=== PATIENT | male | born 1990 | race American Indian/Alaskan Native ===

== ENCOUNTER 2017-02-25 10:04 | Emergency (ER) | payer SELFPAY ==
[2017-02-25 10:24] VITALS: BP 131/92
== END 2017-02-25 10:30 | disposition left against medical advice (07) ==
LOC: ED 10:04
DX: R07.9 Chest pain, unspecified (principal); Z53.21 Procedure and treatment not carried out due to patient leaving prior to being seen by health care provider

== ENCOUNTER 2017-03-03 10:47 | Emergency (ER) | payer SELFPAY ==
[2017-03-03 11:07] VITALS: BP 137/95
[2017-03-03 12:37] LABS: Basophils % (Auto) 0.9 % (0.0-1.8); Eosinophils % (Auto) 0.9 % (0.0-4.3); Hematocrit 47.5 % (35.5-45.6); Mean Corpuscular HGB Conc 34 % (32-34); Mean Corpuscular Hemoglobin 31 pg (28-32); Mean Corpuscular Volume 92 fl (84-94); Platelet Count 209 K/mm3 (140-440); Red Blood Count 5.15 M/mm3 (3.65-5.03); Red Cell Distribution Width 12.8 % (13.2-15.2); White Blood Count 4.4 K/mm3 (4.5-11.0)
[2017-03-03 12:47] LABS: Anion Gap 16 mmol/L; Blood Urea Nitrogen 11 mg/dL (9-20); Calcium 9.4 mg/dL (8.4-10.2); Carbon Dioxide 26 mmol/L (22-30); Chloride 102.4 mmol/L (98-107); Glucose 88 mg/dL (75-100); Potassium 4.5 mmol/L (3.6-5.0); Sodium 140 mmol/L (137-145)
== END 2017-03-03 12:07 | disposition left against medical advice (07) ==
LOC: ED 10:47
DX: R07.9 Chest pain, unspecified (principal); F90.9 Attention-deficit hyperactivity disorder, unspecified type; Z91.030 Bee allergy status; Z53.21 Procedure and treatment not carried out due to patient leaving prior to being seen by health care provider
CPT/HCPCS: 36415; 80048; 84484; 85025; 93005; 93010

== ENCOUNTER 2017-07-22 02:20 | Emergency (ER) | payer OTHER ==
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
[2017-07-22 06:25] VITALS: BP 121/79
== END 2017-07-22 06:25 | disposition home or self-care (01) ==
LOC: ED 02:20
DX: S61.216A Laceration without foreign body of right little finger without damage to nail, initial encounter (principal); S61.214A Laceration without foreign body of right ring finger without damage to nail, initial encounter; F90.9 Attention-deficit hyperactivity disorder, unspecified type; Z91.030 Bee allergy status; W25.XXXA Contact with sharp glass, initial encounter; Y93.89 Activity, other specified; Y92.89 Other specified places as the place of occurrence of the external cause; Y99.8 Other external cause status
CPT/HCPCS: 99282

== ENCOUNTER 2019-01-23 05:18 | Emergency (ER) | payer MEDICAID, MEDICARE, OTHER ==
[2019-01-23] MEDS ORDERED: IBUPROFEN PO ONE (07:15)
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
[2019-01-23 10:18] VITALS: BP 132/84
== END 2019-01-23 09:50 | disposition home or self-care (01) ==
LOC: EEVIPCON 05:18 → ED 05:18
DX: M25.572 Pain in left ankle and joints of left foot (principal); F90.9 Attention-deficit hyperactivity disorder, unspecified type; K02.9 Dental caries, unspecified; F17.200 Nicotine dependence, unspecified, uncomplicated; F12.10 Cannabis abuse, uncomplicated; Z91.030 Bee allergy status; Z98.890 Other specified postprocedural states; V47.5XXA Car driver injured in collision with fixed or stationary object in traffic accident, initial encounter; Y93.89 Activity, other specified; Y92.89 Other specified places as the place of occurrence of the external cause; Y99.8 Other external cause status